=== PATIENT | male | born 1995 | race Caucasian/White ===

== ENCOUNTER 2019-02-28 00:29 | Emergency (ER) | payer BC ==
[2019-02-28] MEDS ORDERED: ONDANSETRON DISINTEGRATING 4 MG TAB ONE (00:41)
[2019-02-28] MEDS ORDERED: ONDANSETRON DISINTEGRATING 4 MG TAB PO ONE (00:43)
--- NOTE | 2019-02-28 00:46 | EDPHY ---
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 Patient states start having vomiting and some diarrhea today. Vomited only once. Had some nausea which has since improved. He has been having increasing fatigue however he was recently diagnosed with hypothyroidism last week. He has also seen urine complaining his final projects and is not been sleeping much. States he was only drinking coffee today to try to stay awake. Feels that he might be dehydrated. Says actually is feeling worse earlier in his nausea has subtle since arriving here. Some mild epigastric abdominal pain. No blood in his vomit. No dark black or tarry stools. No cough. No shortness of breath. No fevers or chills. ROS: 10 systems were reviewed and were negative except those elements noted in the HPI. PMH: Recent diagnosis of hypothyroidism Social History: No smoking, no alcohol, no recreational drug use Family History: non-contributory Physical Exam: Gen: Awake, Alert, No Distress HEENT: Nose: no rhinorrhea Eyes: PERRLA, EOMI Mouth: Moist mucosa Neck: Supple, no JVD Chest: nontender, lungs clear to auscultation Heart: S1, S2 normal, no murmur Abd: Soft, non-tender, no guarding Back: no CVA tenderness, no midline tenderness Ext: no edema, non-tender Skin: no rash Neuro: CN II-XII intact, Sensation grossly intact, Strength 5/5 in bilateral upper and lower extremities - Personal History Current Tetanus Diphtheria and Acellular Pertussis (TDAP): Yes - Medical/Surgical History Hx Asthma: No Hx Chronic Respiratory Disease: No Hx Diabetes: No Hx Cardiac Disease: No Hx Renal Disease: No Hx Cirrhosis: No Hx Alcoholism: No Hx HIV/AIDS: No Hx Splenectomy or Spleen Trauma: No Other PMH: Poss hypothyroid - Social History Smoking Status: Never smoked Constitutional: Initial Vital Signs Temperature (C) 37.2 C 02/28/19 00:34 Heart Rate 100 02/28/19 00:34 Respiratory Rate 18 02/28/19 00:34 Blood Pressure 148/102 H 02/28/19 00:34 O2 Sat (%) 98 02/28/19 00:34 O2 Delivery Mode Room Air Allergies/Adverse Reactions: No Known Allergies Allergy (Unverified 02/28/19 00:34) Home Medications: Medication Instructions Recorded NK [No Known Home Meds] 02/28/19 Medical Decision Making ED Course/Re-evaluation: Patient is declining IV at this time. He would like to try some oral Zofran and oral fluids. Patient continued complain nausea. IV is been placed. Will give him IV fluids and reassess. Patient is improved. He is tolerating p. O.. Abdomen is soft and benign. Will discharge with follow-up with [facility], return for any concerns. I think his symptoms are likely a combination of his lack of sleep, heavy caffeine use and possible underlying GI bug. He he certainly is benign appearance at this time. - Data Points Medications Given: Discontinued Medications Sodium Chloride (Ns) 1,000 mls @ 0 mls/hr IV ONCE ONE; Wide Open PRN Reason: Protocol Stop: 02/28/19 02:00 Last Admin: 02/28/19 02:00 Dose: 1,000 mls Ondansetron HCl (Zofran Odt) 4 mg PO EDNOW ONE Stop: 02/28/19 00:44 Last Admin: 02/28/19 00:43 Dose: 4 mg Ondansetron HCl (Zofran) 4 mg IVP EDNOW ONE Stop: 02/28/19 02:00 Last Admin: 02/28/19 02:00 Dose: 4 mg Departure - Departure Disposition: Home, Routine, Self-Care Clinical Impression: Nausea and vomiting Condition: Good Instructions: Acute Nausea and Vomiting (ED) Additional Instructions: You may take Zofran as needed for nausea vomiting. Make sure to get plenty of rest. Try to limit your caffeine intake. [facility]3 days if symptoms are not improving. Referrals: HYACINTH Velazco,. [Clinic] - As per Instructions
[2019-02-28] MEDS ORDERED: ONDANSETRON 4 MG/2 ML VIAL ONE (01:49)
[2019-02-28] MEDS ORDERED: NS 1,000 ML IV ONE (01:59)
[2019-02-28] MEDS ORDERED: ONDANSETRON 4 MG/2 ML VIAL IVP ONE (01:59)
[2019-02-28] MEDS ORDERED: ONDANSETRON 4MG PREPACK#2 BTL TAKEHOME ONE (03:00)
[2019-02-28 03:27] VITALS: BP 113/68
== END 2019-02-28 03:27 | disposition home or self-care (01) ==
DX: R11.2 Nausea with vomiting, unspecified (principal); R19.7 Diarrhea, unspecified; R53.83 Other fatigue; E86.9 Volume depletion, unspecified
CPT/HCPCS: 96374; J2405